=== PATIENT | female | born 1940 | race Caucasian/White ===

== ENCOUNTER 2020-07-28 15:54 | Emergency (ER) | payer MEDICARE ==
[~2020-07-28] VITALS: Ht 160 cm; Wt 65.0 kg
[2020-07-28 16:51] LABS: BASOPHILS % (AUTO) 1 % (0-1); EOSINOPHILS % (AUTO) 0 % (1-7); LYMPHOCYTES % (AUTO) 11 % (22-44); MD NO; MEAN CORPUSCULAR HEMOGLOBIN 31.3 pg (27.0-34.8); MEAN CORPUSCULAR HGB CONC 33.1 g/dL (32.4-35.8); MEAN PLATELET VOLUME 7.2 fL (7.4-10.4); MONOCYTES % (AUTO) 9 % (2-9); NEUTROPHILS % (AUTO) 79 % (42-75); PLATELET COUNT 273 x10^3/uL (130-400); RED BLOOD COUNT 3.98 x10^6/uL (3.82-5.3); RED CELL DISTRIBUTION WIDTH 13.1 % (9.6-15.2)
[2020-07-28 16:57] LABS: ALANINE AMINOTRANSFERASE 27 U/L (12-78); ANION GAP 8 mmol/L (5-15); CALCIUM 8.7 mg/dL (8.5-10.1); CHLORIDE 106 mmol/L (98-107)
[2020-07-28 16:59] LABS: ALKALINE PHOSPHATASE 63 U/L (45-117); BILIRUBIN,TOTAL 0.3 mg/dL (0.2-1.0); TOTAL PROTEIN 7.3 g/dL (6.4-8.2)
[2020-07-28 17:03] LABS: MICROSCOPIC NOT IND
--- NOTE | 2020-07-28 17:32 | NUR ---
PT IN CT.
[2020-07-28] MEDS ORDERED: OMNIPAQUE 350 MG/ML, 100ML BOTTLE ONE (17:35)
[2020-07-28] MEDS ORDERED: metroNIDAZOLE 500 MG TABLET PO ONE (19:30)
[2020-07-28] MEDS ORDERED: AMOXICILLIN/CLAV 875-125MG TABLET PO ONE (19:30)
[2020-07-28] MEDS ORDERED: AMOXICILLIN/CLAV 875-125MG TABLET ONE (19:34)
[2020-07-28] MEDS ORDERED: metroNIDAZOLE 500 MG TABLET ONE (19:34)
[2020-07-28 19:55] VITALS: BP 136/69
== END 2020-07-28 19:57 | disposition home or self-care (01) ==
LOC: ED 16:46
DX: N82.3 Fistula of vagina to large intestine (principal)
CPT/HCPCS: 36415; 74177; 80053; 81003; 83690; 85025; 87070; 87077; 87205; 99285; Q9967; 87186

== ENCOUNTER 2020-07-29 09:24 | Emergency (ER) | payer MEDICARE ==
[~2020-07-29] VITALS: Ht 160 cm; Wt 65.0 kg
--- NOTE | 2020-07-29 09:51 | NUR ---
DR COLE AT BEDSIDE. PT ASSESSMENT AND POC REVIEWED. ALL MONITORS IN PLACE, CALL LIGHT W/I REACH. VSS
[2020-07-29] MEDS ORDERED: SODIUM CHLORIDE 0.9% 1,000ML IVBOLUS ONE (10:00)
[2020-07-29] MEDS ORDERED: ONDANSETRON 2MG/ML, 2ML IVPush ONE (10:00)
[2020-07-29] MEDS ORDERED: SODIUM CHLORIDE FLUSH 10ML SYR IVF ONE (10:00)
[2020-07-29] MEDS ORDERED: PROMETHAZINE 25 MG/ML, 1ML ONE (10:28)
--- NOTE | 2020-07-29 10:52 | NUR ---
BEDSIDE REPORT FROM WING SALAMANCA.
[2020-07-29] MEDS ORDERED: PROMETHAZINE 25 MG/ML, 1ML IM ONE (11:00)
[2020-07-29 11:07] LABS: BASOPHILS % (AUTO) 0 % (0-1); EOSINOPHILS % (AUTO) 0 % (1-7); LYMPHOCYTES % (AUTO) 4 % (22-44); MEAN CORPUSCULAR HEMOGLOBIN 31.2 pg (27.0-34.8); MEAN CORPUSCULAR HGB CONC 33.4 g/dL (32.4-35.8); MEAN PLATELET VOLUME 7.2 fL (7.4-10.4); MONOCYTES % (AUTO) 7 % (2-9); NEUTROPHILS % (AUTO) 88 % (42-75); PLATELET COUNT 301 x10^3/uL (130-400); RED BLOOD COUNT 4.08 x10^6/uL (3.82-5.3)
[2020-07-29 11:13] LABS: ALBUMIN 3.2 g/dL (3.4-5.0); CALCIUM 8.7 mg/dL (8.5-10.1); CREATININE 0.74 mg/dL (0.55-1.02)
[2020-07-29 11:27] LABS: ANION GAP 7 mmol/L (5-15); CHLORIDE 105 mmol/L (98-107)
[2020-07-29 12:05] LABS: MD SCAN
[2020-07-29 12:15] VITALS: BP 119/48
== END 2020-07-29 12:44 | disposition home or self-care (01) ==
LOC: ED 10:22
DX: N82.3 Fistula of vagina to large intestine (principal); R11.2 Nausea with vomiting, unspecified; R10.31 Right lower quadrant pain
CPT/HCPCS: 36415; 80048; 82040; 85025; 96372; 99283; J2550; J7030; 96360

== ENCOUNTER → 2020-09-05 | Outpatient (CLI) | payer MEDICARE ==
[~2020-09-05] MED LIST: ASCO100019 PO; CHOL10003 PO; LEVO25TA4 PO; Oxygen INH; VITA-74 PO; VITA1CAP PO
[2020-09-05 15:01] LABS: BASOPHILS % (AUTO) 0 % (0-1); EOSINOPHILS % (AUTO) 0 % (1-7); LYMPHOCYTES % (AUTO) 8 % (22-44); MEAN CORPUSCULAR HEMOGLOBIN 30.8 pg (27.0-34.8); MEAN CORPUSCULAR HGB CONC 32.4 g/dL (32.4-35.8); MEAN PLATELET VOLUME 7.4 fL (7.4-10.4); MONOCYTES % (AUTO) 7 % (2-9); NEUTROPHILS % (AUTO) 84 % (42-75); PLATELET COUNT 252 x10^3/uL (130-400); RED BLOOD COUNT 4.24 x10^6/uL (3.82-5.3); RED CELL DISTRIBUTION WIDTH 14.5 % (9.6-15.2)
[2020-09-05 15:12] LABS: ALBUMIN 3.4 g/dL (3.4-5.0); ANION GAP 3 mmol/L (5-15); CALCIUM 9.2 mg/dL (8.5-10.1); CHLORIDE 103 mmol/L (98-107)
[2020-09-05 15:15] LABS: ALANINE AMINOTRANSFERASE 19 U/L (12-78); ALKALINE PHOSPHATASE 60 U/L (45-117); BILIRUBIN,TOTAL 0.5 mg/dL (0.2-1.0); CREATININE 0.77 mg/dL (0.55-1.02); TOTAL PROTEIN 7.2 g/dL (6.4-8.2)
[2020-09-05 15:45] LABS: MD SCAN
== END | disposition home or self-care (01) ==
LOC: STAR 13:07
PROVIDERS: ATTEND Surgery
DX: Z01.818 Encounter for other preprocedural examination (principal); N82.3 Fistula of vagina to large intestine; R94.31 Abnormal electrocardiogram [ECG] [EKG]; Z20.822 Contact with and (suspected) exposure to COVID-19
CPT/HCPCS: 80053; 85025; 87635; 93005